=== PATIENT | male | born 1990 ===

== ENCOUNTER 2017-01-12 22:00 | Inpatient (IN) | payer OTHER ==
[~2017-01-12] VITALS: Ht 172.7 cm; Wt 137.1 kg
[2017-01-13] VITALS (12 sets, daily range): BP systolic 124–151; BP diastolic 61–95; PULSE 66–107; RESP 18–22; Ht 172.7 cm; Wt 137.1 kg
[2017-01-13] MEDS ORDERED: CEPH-443 PO (01:52)
[2017-01-13] MEDS ORDERED: TRAM50TA2 PO (01:52)
[2017-01-13] MEDS ORDERED: BACTDS PO (01:52)
[2017-01-13] MEDS ORDERED: VANCOMYCIN IV PER PHARMACY XX SCH (02:30)
[2017-01-13] MEDS ORDERED: ALBUTEROL 0.083% (NEB) 2.5 MG/3 ML AMP NEB PRN (02:30)
[2017-01-13] MEDS ORDERED: NITROGLYCERIN (SL) 0.4 MG TAB SL PRN (02:30)
[2017-01-13] MEDS ORDERED: NACL 0.9% 3 ML SYG IV SCH ×2 (02:30)
[2017-01-13] MEDS ORDERED: ONDANSETRON 4 MG TAB PO PRN (02:30)
[2017-01-13] MEDS ORDERED: CEFTRIAXONE 1 GM/50 ML (PMX) 50 ML IV SCH (02:30)
[2017-01-13] MEDS ORDERED: METOCLOPRAMIDE 10 MG INJ IV PRN (02:30)
--- NOTE | 2017-01-13 02:34 | HP ---
Date/Time of Note Date/Time of Note DATE: 01/13/17 TIME: 02:33 Assessment/Plan VTE Prophylaxis VTE Prophylaxis Intervention: ambulation Lines/Catheters IV Catheter Type (from [facility]): Saline Lock Assessment/Plan Assessment/Plan 1) Right LL Pneumonia - Admit to Med-Surg - IV Abx - Maintain O2 saturation above 90-92% - AM Labs: CBC, BMP - Incentive Spirometer - Activity as tolerated 2) Plonidal Cyst, S/P I&D healing well - Routine Care HPI/ROS Admit Date/Time Admit Date/Time Jan 13, 2017 at 01:09 Hx of Present Illness This is a 30-year-old male transferred to us from [facility] for insurance reasons. He presented there yesterday for follow-up on his wound status post IND of a pilonidal cyst 2 days prior. He also complained of a cough and difficulty breathing. Patient admits now that he had a temperature of 100 when they did the procedure, and he explained that he was just getting over the flu. After the incision and drainage she was discharged home on Keflex and Bactrim and he states he has been compliant with taking them. The previous pain in his lower back due to the pilonidal cyst has resolved. For the last couple of days he's had a cough productive of yellow sputum occasionally in the mornings. When he coughs really hard, the sputum is blood tinged. He took Robitussin for his symptoms. When he initially arrived to [facility] ER he was hypoxic saturating about 90% on room air, and that repair improved after he received 2 L of oxygen via nasal cannula. No nausea vomiting wheezing chest pain palpitations abdominal pains diarrhea or generalized body aches. While in the ER, he was his cardiac and oxygenation status were monitored. He was given oxygen supplementation the form of nasal cannula. 5 mL of normal saline were bolused via IV 2 and blood cultures were drawn and he was treated with IV ceftriaxone and azithromycin. Abdomen patient is here, he is feeling pretty good. He denies fevers chills nausea vomiting. There is still little bit of abdominal pain. Labs from [facility]: WBC 16.3 with a differential that shows neutrophils are elevated at 80.6%; H/H = 15.0/45.6; platelets =195 Sodium 138; potassium 4.5; chloride 100; CO2 23; B UN/creatinine 8/0.77; glucose 87 calcium 8.6 anion gap 15 estimated GFR 60. Lactate 1.13; pro calcitonin 0.19 Rads from [facility]: Per ER physician, chest x-ray demonstrates right lower lobe and right mid lung infiltrates. No cardiomegaly. No pneumothorax. ROS General: Admits: Fever, Chills, Denies: Chills, Appetite, Generalized Body Aches Eyes: Admits: Denies: Blurry Vision, Double Vision HENT: Admits: Denies: Ear Pain/Pressure, Runny/Stuffy Nose, Sore Throat Cardiovascular: Admits: Denies: Chest Pain, Palpitations, Leg Swelling Pulmonary: Admits: Cough, occasionally productive of yellow phlegm; do do do do due to due to Shortness of Breath Denies: Wheeze Gastrointestinal: Admits: Denies: Abdominal Pain, Nausea, Vomiting, Diarrhea, Blood in Stool, Black-Colored Stool Urogenital: Admits: Denies: Burning with Urination, Urinary Frequency, Blood in Urine Musculoskeletal: Admits: Denies: Joint Pain, Joint Swelling, Muscle Pain Neurological: Admits: Denies: Headache, Dizziness, Numbness, Tingling, Shooting Pains Integumentary: Admits: Wound from pilonidal cyst is not draining and it is no longer tender Denies: Rash, Itch PMH/Family/Social Past Medical History Medical History: no pertinent history Past Surgical History Past Surgical Hx: appendectomy Social History Alcohol Use: occasionally Smoking Status: Never smoker Drug Use: none Exam/Review of Systems Vital Signs Vitals Vital Signs Date Time Temp Pulse Resp B/P Pulse Ox O2 Delivery O2 Flow Rate FiO2 01/13/17 01:57 Nasal Cannula 2.0 01/13/17 01:15 98.6 112 18 124/72 94 Intake and Output 01/12/17 01/12/17 01/13/17 15:00 23:00 07:00 Intake Total 400 ml Balance 400 ml Exam Exam General: Morbidly obese male, alert and oriented, in no acute distress Eyes: Sclera White, EOMI HENT: Normocephalic/Atraumatic, External Ears/Nose Normal, Moist Mucus Membranes Neck: Supple, Trachea Midline Cardiovascular: Normal Rate, Regular Rhythm, Normal S1 and S2, No Murmur, No Extra Sounds. Radial disease +2/4. Trace pitting edema to lower one third of the legs bilaterally. Pulmonary: Clear to Auscultation Bilaterally, Normal Respiratory Effort, No Rales, Rhonchi or Wheezes Gastrointestinal: Normoactive Bowel Sounds, Soft, mild generalized tenderness. No guarding or rebound. Non-Distended, No Hepatosplenomegaly Appreciated, but exam difficult due to body habitus, No Pulsatile Masses Urogenital: Deferred Musculoskeletal: Normal Muscle Bulk and Tone Neurological: CN II - XII Grossly Intact, Non-Focal, Speech Normal Integumentary: Normal Moisture and Temperature, Good Turgor, No Jaundice, No Rash. Low back with healing incision site form I&D. No purulent drainage erythema, induration or fluctuance. Lymphatic: No Cervical Lymphadenopathy Psychiatric: Appropriate Mood and Affect, Good Eye Contact Medications Medications Current Medications Ondansetron HCl (Zofran Tab) 4 mg Q6H PRN PO NAUSEA AND/OR VOMITING; Start 01/13 at 02:30 Metoclopramide HCl (Reglan) 10 mg Q6H PRN IV NAUSEA AND/OR VOMITING; Start 01/13 at 02:30 Nitroglycerin (Nitroglycerin (Sl Tab) 0.4 Mg) 1 tab Q5M PRN SL CHEST PAIN; Start 01/13/17 at 02:30 Acetaminophen (Tylenol Tab) 650 mg Q6H PRN PO PAIN LEVEL 1-3 OR FEVER; Start at 02:30 Acetaminophen/ Hydrocodone Bitart ([place] (5/325)) 1 tab Q6H PRN PO PAIN LEVEL 4 -6; Start 01/13/17 at 02:30 Famotidine (Pepcid) 20 mg Q12 PO ; Start 01/13/17 at 09:00 Enoxaparin Sodium 40 mg 40 mg DAILY SC ; Start 01/13/17 at 09:00 Ceftriaxone Sodium 50 ml @ 100 mls/hr Q24H IV ; Start 01/13/17 at 02:30 Azithromycin (Zithromax 500mg/ NS (Pmx)) 250 ml @ 250 mls/hr Q24H IV ; Start at 03:30 Guaifenesin/ Dextromethorphan 10 ml 10 ml Q4H PRN PO COUGH; Start 01/13/17 at 02 :30 Vancomycin HCl/ Sodium Chloride (Vancocin/NS) 500 ml @ 125 mls/hr ONCE IVPB ; Start 01/13/17 at 04:30; Stop 01/13/17 at 08:29 LILLIE GOYAL DO Jan 13, 2017 02:34
[2017-01-13] MEDS: HYDROCODONE/APAP (5/325) TAB PO PRN ×3 (03:21→20:00)
[2017-01-13] MEDS: GUAIFENESIN/DM 5ML CUP PO PRN ×4 (03:22→19:59)
[2017-01-13] MEDS ORDERED: AZITHROMYCIN 500MG/NS (PMX) 250 ML IV SCH (03:30)
[2017-01-13] MEDS: ALBUTEROL/IPRATROPIUM (NEB) 3 ML AMP HHN SCH ×5 (04:03→21:07)
[2017-01-13] MEDS ORDERED: VANCOMYCIN 2 GM in SOD CHLORIDE 0.9% 500 ML IVPB SCH (04:30)
[2017-01-13] MEDS: FAMOTIDINE 20 MG TAB PO SCH ×2 (08:04→20:00)
[2017-01-13] MEDS: ENOXAPARIN 40 MG/0.4 ML SYG SC SCH (08:08)
[2017-01-13 08:28] LABS: ADD SCAN DIFF NO
[2017-01-13 08:38] LABS: BASOPHIL # 0.1 10^3/ul (0.0-0.1); BASOPHILS % 0.4 % (0.0-2.0); EOSINOPHILS # 0.1 10^3/ul (0.0-0.5); EOSINOPHILS % 1.2 % (0.0-7.0); HEMATOCRIT 42.1 % (42.0-52.0); HEMOGLOBIN 13.6 g/dl (14.0-18.0); LYMPHOCYTES # 1.8 10^3/ul (0.8-2.9); LYMPHOCYTES % 16.4 % (15.0-51.0); MEAN CORPUSCULAR HEMOGLOBIN 30.4 pg (29.0-33.0); MEAN CORPUSCULAR HGB CONC 32.3 g/dl (32.0-37.0); MEAN PLATELET VOLUME 11.7 fl (7.4-10.4); MONOCYTE # 0.8 10^3/ul (0.3-0.9); MONOCYTES % 7.4 % (0.0-11.0); NEUTROPHIL # 8.2 10^3/ul (1.6-7.5); PLATELET COUNT 212 10^3/UL (140-415); RED BLOOD COUNT 4.48 10^6/ul (4.70-6.10); RED CELL DISTRIBUTION WIDTH 12.9 % (11.5-14.5); WHITE BLOOD COUNT 11.2 10^3/ul (4.8-10.8)
[2017-01-13 08:47] LABS: ALBUMIN 3.5 g/dl (3.3-4.9)
[2017-01-13 08:48] LABS: POTASSIUM 4.1 mmol/L (3.5-5.1)
[2017-01-13 08:50] LABS: BILIRUBIN,INDIRECT 0.3 mg/dl (0-1.1); BILIRUBIN,TOTAL 0.3 mg/dl (0.2-1.3); CALCIUM 8.3 mg/dl (8.4-10.2); CREATININE 0.74 mg/dl (0.61-1.24)
[2017-01-13] MEDS: ACETAMINOPHEN 325 MG TAB PO PRN (10:01)
[2017-01-13] MEDS: VANCOMYCIN 1.75 GM in NS 500 ML IVPB SCH ×2 (13:56→23:12)
--- NOTE | 2017-01-13 15:02 | RADRPT ---
PROCEDURE: XR Chest AP portable CLINICAL INDICATION: Infiltrate TECHNIQUE: An AP portable radiograph of the chest was submitted. COMPARISON: None. FINDINGS: Support Hardware: None Cardiovascular: The cardiovascular silhouette appears unremarkable. Lung Mariee: And alveolar infiltrate is seen within the right middle lobe. Pleural Spaces: No pneumothorax or pleural effusion is identified. Osseous Structures: The osseous structures appear intact. Soft Tissues: The soft tissues appear generous. IMPRESSION: Alveolar infiltrate seen in right middle lobe. Physician Tony Date Time Electronically viewed and signed by Physician Tony on 01/13/2017 15:01 /
[2017-01-13] MEDS: CEFTRIAXONE 1 GM/50 ML (PMX) 50 ML IVPB SCH (20:52)
[2017-01-13] MEDS: AZITHROMYCIN 500MG/NS (PMX) 250 ML IV SCH (21:41)
--- NOTE | 2017-01-13 23:52 | CONS ---
Date/Time of Note Date/Time of Note DATE: 01/13/17 TIME: 23:51 Assessment/Plan Assessment/Plan Chief Complaint/Hosp Course 1. Pilonidal abscess insufficiently drained -abx -local care -warm compress -needs further I&D 2. BMI 46 -Diet optimization -Exercise optimization 3. Anemia without evidence of acute blood loss -Eventual workup 4. Right lower lobe pneumonia -Pulmonary toilet -Antibiotics Thank you very much for consulting me in this patient's care, Problems: Consultation Date/Type/Reason Admit Date/Time Jan 13, 2017 at 01:09 Date of Consultation: Jan 13, 2017 Type of Consultation: General surgical Reason for Consultation Pilonidal abscess BMI 46 Pneumonia Leukocytosis Anemia Referring Provider: STEPH MURO NP Hx of Present Illness Chandrakant Monson is a 30yo male with multiple comorbidities transferred to us from [facility] for insurance reasons. He presented there yesterday for follow-up on his wound status post I&D of a pilonidal cyst 2 days prior. He also complained of a cough and difficulty breathing. Patient admits now that he had a temperature of 100 when they did the procedure, and he explained that he was just getting over the flu. After the incision and drainage he was discharged home on Keflex and Bactrim and he states he has been compliant with taking them. The previous pain in his lower back due to the pilonidal cyst has resolved. In the ER he was found to have right lower lobe pneumonia and leukocytosis. He continues to have drainage from the pilonidal abscess. He is admitted with antibiotics and surgical consult is obtained for evaluation and treatment. Constitutional: chills, febrile Eyes: No discharge ENT: No bleeding, No discharge, No dysphagia Respiratory: cough, No shortness of breath Cardiovascular: No chest pain, No lightheadedness Gastrointestinal: flatus, pain, passing stool, No nausea Genitourinary: No bleeding, No dysuria Musculoskeletal: back pain, No neck pain Skin: skin lesions, No bruising Neurologic: No confusion, No dizziness Endocrine: No polyuria Lymphatic: No adenopathy Psychological: nl mood/affect, No anxiety Immunologic: No pruritis, No rhinitis Past Medical History BMI 46 Pilonidal cyst and abscess Right lower lobe pneumonia Leukocytosis Anemia Past Surgical History Appendectomy Family History Significant Family History: no pertinent family hx Social History Alcohol Use: occasionally Smoking Status: Never smoker Drug Use: none Exam/Review of Systems Vital Signs Vitals Vital Signs Date Time Temp Pulse Resp B/P Pulse Ox O2 Delivery O2 Flow Rate FiO2 01/13/17 21:18 Nasal Cannula 2.0 01/13/17 21:08 96 22 98 01/13/17 19:45 97.3 132/74 Intake and Output 01/12/17 01/12/17 01/13/17 15:00 23:00 07:00 Intake Total 765 ml Output Total 400 ml Balance 365 ml Exam Constitutional: alert, obese, oriented, No distress Psych: No anxiety, No confusion Head: atraumatic, normocephalic Eyes: EOMI, PERRL, nl conjunctiva, No icteric ENMT: mucosa pink and moist, nl external ears & nose, nl lips & teeth Neck: non-tender, No jvd Respiratory: normal air movement, No congested cough, No labored breathing Cardiovascular: regular rate and rhythm, No edema Gastrointestinal: non-tender, other (Gluteal cleft with induration and fluctuance blanching erythema and purulent drainage), soft, No distended, No rebound or guarding Genitourinary - Male: nl penis, nl scrotum Musculoskeletal: nl extremities to inspection, nl gait and stance, No joint tenderness Extremities: normal pulses, No calf tenderness, No cyanosis Neurological: nl mental status, nl speech, nl strength Skin: nl turgor, rash or lesions (Gluteal cleft), No diaphoresis Lymph: nl lymph nodes Results Result Diagram: 01/13/17 0730 01/13/17 0730 Results 24 hrs Laboratory Tests Test 01/13/17 07:30 White Blood Count 11.2 H Red Blood Count 4.48 L Hemoglobin 13.6 L Hematocrit 42.1 Mean Corpuscular Volume 94.0 Mean Corpuscular Hemoglobin 30.4 Mean Corpuscular Hemoglobin Concent 32.3 Red Cell Distribution Width 12.9 Platelet Count 212 Mean Platelet Volume 11.7 H Neutrophils % 74.0 Lymphocytes % 16.4 Monocytes % 7.4 Eosinophils % 1.2 Basophils % 0.4 Nucleated Red Blood Cells % 0.0 Neutrophils # 8.2 H Lymphocytes # 1.8 Monocytes # 0.8 Eosinophils # 0.1 Basophils # 0.1 Nucleated Red Blood Cells # 0.0 Sodium Level 139 Potassium Level 4.1 Chloride Level 101 Carbon Dioxide Level 27 Anion Gap 15 Blood Urea Nitrogen 8 Creatinine 0.74 Glucose Level 100 Calcium Level 8.3 L Total Bilirubin 0.3 Direct Bilirubin 0.00 Indirect Bilirubin 0.3 Aspartate Amino Transf (AST/SGOT) 29 Alanine Aminotransferase (ALT/SGPT) 52 Alkaline Phosphatase 68 Total Protein 7.0 Albumin 3.5 Globulin 3.50 H Albumin/Globulin Ratio 1.00 Medications Medications Current Medications Ondansetron HCl (Zofran Tab) 4 mg Q6H PRN PO NAUSEA AND/OR VOMITING; Start 01/13 at 02:30 Metoclopramide HCl (Reglan) 10 mg Q6H PRN IV NAUSEA AND/OR VOMITING; Start 01/13 at 02:30 Nitroglycerin (Nitroglycerin (Sl Tab) 0.4 Mg) 1 tab Q5M PRN SL CHEST PAIN; Start 01/13/17 at 02:30 Acetaminophen (Tylenol Tab) 650 mg Q6H PRN PO PAIN LEVEL 1-3 OR FEVER Last administered on 01/13/17 10:01; Admin Dose 650 MG; Start 01/13/17 at 02:30 Acetaminophen/ Hydrocodone Bitart ([place] (5/325)) 1 tab Q6H PRN PO PAIN LEVEL 4 -6 Last administered on 01/13/17 20:00; Admin Dose 1 TAB; Start 01/13/17 at 02:30 Famotidine (Pepcid) 20 mg Q12 PO Last administered on 01/13/17 20:00; Admin Dose 20 MG; Start 01/13/17 at 09:00 Enoxaparin Sodium (Lovenox) 40 mg DAILY SC Last administered on 01/13/17 08:08 ; Admin Dose 40 MG; Start 01/13/17 at 09:00 Guaifenesin/ Dextromethorphan 10 ml 10 ml Q4H PRN PO COUGH Last administered on 01/13/17 19:59; Admin Dose 10 ML; Start 01/13/17 at 02:30 Ceftriaxone Sodium 50 ml @ 100 mls/hr Q24H IVPB Last administered on 01/13/17 20:52; Admin Dose 100 MLS/HR; Start 01/13/17 at 19:30 Azithromycin (Zithromax 500mg/ NS (Pmx)) 250 ml @ 250 mls/hr Q24H IV Last administered on 01/13/17 21:41; Admin Dose 250 MLS/HR; Start 01/13/17 at 20:00 Miscellaneous Information VANCO TR LEVEL PRIOR... ONCE ONCE XX ; Start 01/14/17 at 04:00; Stop 01/14/17 at 04:01 Vancomycin HCl/ Sodium Chloride (Vancocin/NS) 500 ml @ 125 mls/hr Q8H IVPB Last administered on 01/13/17 23:12; Admin Dose 125 MLS/HR; Start 01/13/17 at 13: 00 YOU MAURER MD Jan 13, 2017 23:52
[2017-01-14] VITALS (11 sets, daily range): BP systolic 118–157; BP diastolic 60–83; PULSE 79–106; RESP 19–20
[2017-01-14] MEDS: GUAIFENESIN/DM 5ML CUP PO PRN ×4 (02:17→21:12)
[2017-01-14] MEDS: HYDROCODONE/APAP (5/325) TAB PO PRN ×2 (02:17→08:13)
[2017-01-14] MEDS: ALBUTEROL/IPRATROPIUM (NEB) 3 ML AMP HHN SCH ×6 (02:29→22:00)
[2017-01-14 04:20] LABS: ADD SCAN DIFF NO
[2017-01-14 04:22] LABS: BASOPHILS % 0.4 % (0.0-2.0); EOSINOPHILS # 0.2 10^3/ul (0.0-0.5); HEMATOCRIT 40.2 % (42.0-52.0); HEMOGLOBIN 13.1 g/dl (14.0-18.0); LYMPHOCYTES # 1.9 10^3/ul (0.8-2.9); LYMPHOCYTES % 20.9 % (15.0-51.0); MEAN CORPUSCULAR HEMOGLOBIN 30.6 pg (29.0-33.0); MEAN CORPUSCULAR HGB CONC 32.6 g/dl (32.0-37.0); MEAN CORPUSCULAR VOLUME 93.9 fl (82.0-101.0); MEAN PLATELET VOLUME 11.1 fl (7.4-10.4); MONOCYTE # 0.9 10^3/ul (0.3-0.9); MONOCYTES % 9.6 % (0.0-11.0); NEUTROPHIL # 6.1 10^3/ul (1.6-7.5); NEUTROPHILS % 66.6 % (39.0-77.0); PLATELET COUNT 196 10^3/UL (140-415); RED BLOOD COUNT 4.28 10^6/ul (4.70-6.10); RED CELL DISTRIBUTION WIDTH 13.2 % (11.5-14.5); WHITE BLOOD COUNT 9.1 10^3/ul (4.8-10.8)
[2017-01-14 04:49] LABS: POTASSIUM 4.1 mmol/L (3.5-5.1)
[2017-01-14 04:51] LABS: CREATININE 0.63 mg/dl (0.61-1.24)
[2017-01-14 04:52] LABS: CALCIUM 8.5 mg/dl (8.4-10.2)
[2017-01-14 05:08] LABS: CHOL/HDL RATIO 4.1 RATIO; MAGNESIUM 1.8 mg/dl (1.7-2.5); PHOSPHORUS 4.5 mg/dl (2.5-4.9)
[2017-01-14 07:26] LABS: THYROID STIMULATING HORMONE 2.32 MIU/L (0.465-4.680)
[2017-01-14] MEDS: VANCOMYCIN 1.75 GM in NS 500 ML IVPB SCH (08:08)
[2017-01-14] MEDS: FAMOTIDINE 20 MG TAB PO SCH ×2 (08:10→21:12)
[2017-01-14] MEDS: ENOXAPARIN 40 MG/0.4 ML SYG SC SCH (08:11)
--- NOTE | 2017-01-14 15:07 | PN ---
DATE: 01/14/2017 SUBJECTIVE DATA: Dyspnea improved. The patient still complains of leaking from the cyst drain site. OBJECTIVE DATA: VITAL SIGNS: Temperature 98.0, pulse rate 79, respiratory rate 18, blood pressure 130/60, oxygen saturation 98% on 2 liters of oxygen via nasal cannula. GENERAL: This is a morbidly obese male sitting in a chair, in no apparent distress. HEENT: Head normocephalic and atraumatic. Eyes: Anicteric sclerae. Conjunctivae clear. ENT: Nasal septum is midline. Oral mucosa is moist. NECK: Short and obese. CARDIAC: Regular rate and rhythm. No murmurs heard. RESPIRATORY: Bilaterally diminished breath sounds. No use of accessory muscles of respiration. ABDOMEN: Soft, nontender and nondistended. Bowel sounds positive in all 4 quadrants. GENITOURINARY: Deferred. EXTREMITIES: No cyanosis, no clubbing, no edema. Peripheral pulses palpable. NEUROLOGIC: The patient is awake, alert and oriented x3. No focal neurologic deficits. LABORATORY AND DIAGNOSTIC DATA: WBC 9.1, hemoglobin 13.1, hematocrit 40.2, platelet count 196. Sodium 138, potassium 4.1, chloride 102, carbon dioxide 27 , anion gap 13, BUN 8, creatinine 0.62, glucose 115, calcium 8.7. Phosphorus 4.5, magnesium 1.8. ASSESSMENT AND PLAN: 1. Community-acquired pneumonia. Chest x-ray showing right middle lobe infiltrate. Continue antibiotics. 2. Pilonidal abscess insufficiently drained. Being followed by general surgery. Continue antibiotics. Continue warm compresses. General surgery is planning on further I and D. 3. Prediabetes. Hemoglobin A1c 6.0. Weight reduction advised. Dietary consult ordered. 4. Vitamin D deficiency. We will start the patient on vitamin D supplements. 5. Obesity. BMI of 46.0 kg/meter squared. Weight reduction advised. 6. Fluid, electrolytes and nutrition. Low cholesterol diet. 7. Deep venous thrombosis prophylaxis. Subcutaneous Lovenox. 8. Gastrointestinal prophylaxis. Histamine 2 receptor blockers. PLAN: Continue antibiotic therapy. Continue inhaled bronchodilators and supplemental oxygen. Case discussed with Dr. Casey. STEPH CASEY MD, AM/JOLANTA Conf#: [id number] DID#: [id number] [facility]
[2017-01-14] MEDS: VANCOMYCIN 2 GM in SOD CHLORIDE 0.9% 500 ML IVPB SCH (16:08)
[2017-01-14] MEDS: CHOLECALCIFEROL 1,000 UNIT TAB PO SCH (16:08)
[2017-01-14] MEDS: CEFTRIAXONE 1 GM/50 ML (PMX) 50 ML IVPB SCH (20:38)
[2017-01-14] MEDS: AZITHROMYCIN 500MG/NS (PMX) 250 ML IV SCH (21:15)
[2017-01-15] MEDS: VANCOMYCIN 2 GM in SOD CHLORIDE 0.9% 500 ML IVPB SCH ×3 (00:20→16:06)
[2017-01-15] MEDS: ALBUTEROL/IPRATROPIUM (NEB) 3 ML AMP HHN SCH ×6 (00:32→20:54)
[2017-01-15] MEDS: GUAIFENESIN/DM 5ML CUP PO PRN ×3 (05:09→20:24)
[2017-01-15 05:33] LABS: ADD SCAN DIFF NO
[2017-01-15 05:43] LABS: BASOPHILS % 0.4 % (0.0-2.0); EOSINOPHILS # 0.2 10^3/ul (0.0-0.5); EOSINOPHILS % 2.1 % (0.0-7.0); HEMATOCRIT 39.8 % (42.0-52.0); HEMOGLOBIN 13.1 g/dl (14.0-18.0); LYMPHOCYTES # 2.3 10^3/ul (0.8-2.9); LYMPHOCYTES % 22.3 % (15.0-51.0); MEAN CORPUSCULAR HEMOGLOBIN 30.7 pg (29.0-33.0); MEAN CORPUSCULAR HGB CONC 32.9 g/dl (32.0-37.0); MEAN CORPUSCULAR VOLUME 93.2 fl (82.0-101.0); MEAN PLATELET VOLUME 11.1 fl (7.4-10.4); MONOCYTES % 10.1 % (0.0-11.0); NEUTROPHIL # 6.6 10^3/ul (1.6-7.5); NEUTROPHILS % 64.4 % (39.0-77.0); PLATELET COUNT 216 10^3/UL (140-415); RED BLOOD COUNT 4.27 10^6/ul (4.70-6.10); WHITE BLOOD COUNT 10.3 10^3/ul (4.8-10.8)
[2017-01-15 05:57] LABS: CALCIUM 8.6 mg/dl (8.4-10.2); CREATININE 0.61 mg/dl (0.61-1.24); POTASSIUM 4.1 mmol/L (3.5-5.1)
[2017-01-15 05:58] LABS: MAGNESIUM 1.8 mg/dl (1.7-2.5); PHOSPHORUS 4.7 mg/dl (2.5-4.9)
[2017-01-15 07:59] VITALS: BP 119/58; RESP 22
[2017-01-15] MEDS: FAMOTIDINE 20 MG TAB PO SCH ×2 (09:13→20:24)
[2017-01-15] MEDS: CHOLECALCIFEROL 1,000 UNIT TAB PO SCH (09:13)
[2017-01-15] MEDS: ENOXAPARIN 40 MG/0.4 ML SYG SC SCH (09:16)
--- NOTE | 2017-01-15 09:34 | RADRPT ---
PROCEDURE: XR Chest. CLINICAL INDICATION: Shortness of breath. TECHNIQUE: Single frontal view. COMPARISON: 01/13/2017. FINDINGS: There is air space disease in the right middle lobe, improved. The lungs are otherwise clear. The heart size is normal. There is no pleural effusion. There is no pneumothorax. IMPRESSION: 1. Improved right middle lobe pneumonia. 2. No other change from 01/13/2017. RPTAT: QQ .Rigoberto Ellis MD, MD Date Time Electronically viewed and signed by .Rigoberto Ellis MD, MD on 01/15/2017 09:33 .R/
[2017-01-15] MEDS: ACETAMINOPHEN 325 MG TAB PO PRN (11:19)
--- NOTE | 2017-01-15 11:26 | PN ---
Date/Time of Note Date/Time of Note DATE: 01/15/17 TIME: 11:23 Assessment/Plan VTE Prophylaxis VTE Prophylaxis Intervention: LMWH Lines/Catheters IV Catheter Type (from [facility]): Saline Lock Assessment/Plan Chief Complaint/Hosp Course 1. Community-acquired pneumonia. Chest x-ray showing right middle lobe infiltrate. Continue antibiotics. Repeat chest x-ray showing improvement. 2. Pilonidal abscess insufficiently drained. Being followed by general surgery. Continue antibiotics. Continue warm compresses. General surgery is planning on further I and D. 3. Prediabetes. Hemoglobin A1c 6.0. Weight reduction advised. Dietary consult appreciated. 4. Vitamin D deficiency. Continue vitamin D supplements. 5. Obesity. BMI of 46.0 kg/meter squared. Weight reduction advised. 6. Fluid, electrolytes and nutrition. Regular, low cholesterol diet. 7. Deep venous thrombosis prophylaxis. Subcutaneous Lovenox. 8. Gastrointestinal prophylaxis. Histamine 2 receptor blockers. PLAN: Continue antibiotic therapy. Continue inhaled bronchodilators and supplemental oxygen. Await recommendations from general surgery. Case discussed with Dr. Kessler. Problems: Subjective 24 Hr Interval Summary Free Text/Dictation Denies any dyspnea. Complains of headache. Exam/Review of Systems Vital Signs Vitals Vital Signs Date Time Temp Pulse Resp B/P Pulse Ox O2 Delivery O2 Flow Rate FiO2 01/15/17 10:09 91 20 91 Nasal Cannula 2.0 01/15/17 07:59 98.4 119/58 Intake and Output 01/14/17 01/14/17 01/15/17 15:00 23:00 07:00 Intake Total 500 ml 1800 ml 1140 ml Output Total 800 ml 400 ml Balance 500 ml 1000 ml 740 ml Exam GENERAL: This is a morbidly obese male sitting in a chair, in no apparent distress. HEENT: Head normocephalic and atraumatic. Eyes: Anicteric sclerae. Conjunctivae clear. ENT: Nasal septum is midline. Oral mucosa is moist. NECK: Short and obese. CARDIAC: Regular rate and rhythm. No murmurs heard. RESPIRATORY: Bilaterally diminished breath sounds. No use of accessory muscles of respiration. ABDOMEN: Soft, nontender and nondistended. Bowel sounds positive in all 4 quadrants. GENITOURINARY: Deferred. EXTREMITIES: No cyanosis, no clubbing, no edema. Peripheral pulses palpable. NEUROLOGIC: The patient is awake, alert and oriented x3. No focal neurologic deficits. Results Result Diagram: 01/15/17 0450 01/15/17 0450 Results 24 hrs Laboratory Tests Test 01/15/17 04:50 White Blood Count 10.3 Red Blood Count 4.27 L Hemoglobin 13.1 L Hematocrit 39.8 L Mean Corpuscular Volume 93.2 Mean Corpuscular Hemoglobin 30.7 Mean Corpuscular Hemoglobin Concent 32.9 Red Cell Distribution Width 13.0 Platelet Count 216 Mean Platelet Volume 11.1 H Neutrophils % 64.4 Lymphocytes % 22.3 Monocytes % 10.1 Eosinophils % 2.1 Basophils % 0.4 Nucleated Red Blood Cells % 0.0 Neutrophils # 6.6 Lymphocytes # 2.3 Monocytes # 1.0 H Eosinophils # 0.2 Basophils # 0.0 Nucleated Red Blood Cells # 0.0 Sodium Level 139 Potassium Level 4.1 Chloride Level 103 Carbon Dioxide Level 28 Anion Gap 12 Blood Urea Nitrogen 6 L Creatinine 0.61 Glucose Level 116 Calcium Level 8.6 Phosphorus Level 4.7 Magnesium Level 1.8 Medications Medications Current Medications Ondansetron HCl (Zofran Tab) 4 mg Q6H PRN PO NAUSEA AND/OR VOMITING; Start 01/13 at 02:30 Metoclopramide HCl (Reglan) 10 mg Q6H PRN IV NAUSEA AND/OR VOMITING; Start 01/13 at 02:30 Nitroglycerin (Nitroglycerin (Sl Tab) 0.4 Mg) 1 tab Q5M PRN SL CHEST PAIN; Start 01/13/17 at 02:30 Acetaminophen (Tylenol Tab) 650 mg Q6H PRN PO PAIN LEVEL 1-3 OR FEVER Last administered on 01/15/17 11:19; Admin Dose 650 MG; Start 01/13/17 at 02:30 Acetaminophen/ Hydrocodone Bitart ([place] (5/325)) 1 tab Q6H PRN PO PAIN LEVEL 4 -6 Last administered on 01/14/17 08:13; Admin Dose 1 TAB; Start 01/13/17 at 02:30 Famotidine (Pepcid) 20 mg Q12 PO Last administered on 01/15/17 09:13; Admin Dose 20 MG; Start 01/13/17 at 09:00 Enoxaparin Sodium (Lovenox) 40 mg DAILY SC Last administered on 01/15/17 09:16 ; Admin Dose 40 MG; Start 01/13/17 at 09:00 Guaifenesin/ Dextromethorphan 10 ml 10 ml Q4H PRN PO COUGH Last administered on 01/15/17 09:31; Admin Dose 10 ML; Start 01/13/17 at 02:30 Ceftriaxone Sodium 50 ml @ 100 mls/hr Q24H IVPB Last administered on 01/14/17 20:38; Admin Dose 100 MLS/HR; Start 01/13/17 at 19:30 Azithromycin 250 ml @ 250 mls/hr Q24H IV Last administered on 01/14/17 21:15; Admin Dose 250 MLS/HR; Start 01/13/17 at 20:00 Vancomycin HCl/ Sodium Chloride (Vancocin/NS) 500 ml @ 125 mls/hr Q8H IVPB Last administered on 01/15/17 09:25; Admin Dose 125 MLS/HR; Start 01/14/17 at 16: 00 Miscellaneous Information (*Rx Drug Level Order Reminder*) VANCO TROUGH @ 1, 500 ON... ONCE ONCE XX ; Start 01/15/17 at 15:00; Stop 01/15/17 at 15:01 Cholecalciferol (Vitamin D) 1,000 unit DAILY PO Last administered on 01/15/17 09:13; Admin Dose 1,000 UNIT; Start 01/14/17 at 16:00 Procedures Procedures CXR IMPRESSION: 1. Improved right middle lobe pneumonia. 2. No other change from 01/13/2017. STEPH MURO NP Jan 15, 2017 11:26
--- NOTE | 2017-01-15 14:04 | PN ---
Date/Time of Note Date/Time of Note DATE: 01/14/17 TIME: 23:02 Assessment/Plan Lines/Catheters IV C[facility]ter Type (from [facility] Saline Lock Assessment/Plan Chief Complaint/Hosp Course 1. Pilonidal abscess insufficiently drained -abx -local care -warm compress -needs further I&D 2. BMI 46 -Diet optimization -Exercise optimization 3. Anemia without evidence of acute blood loss -Eventual workup 4. Right lower lobe pneumonia -Pulmonary toilet -Antibiotics Thank you, Late entry 01/14 Problems: Subjective 24 Hr Interval Summary Minimal pain in the back. No fevers or chills. No nausea vomiting. No chest pain or shortness of breath. No visual neurologic changes. No dysuria. No cough. No seizure. No rashes. Drainage from the gluteal cleft. Bowel function. Exam/Review of Systems Vital Signs Vitals Vital Signs Date Time Temp Pulse Resp B/P Pulse Ox O2 Delivery O2 Flow Rate FiO2 01/15/17 13:20 92 20 96 Nasal Cannula 2.0 01/15/17 07:59 98.4 119/58 Intake and Output 01/14/17 01/14/17 01/15/17 15:00 23:00 07:00 Intake Total 500 ml 1800 ml 1140 ml Output Total 800 ml 400 ml Balance 500 ml 1000 ml 740 ml Exam Free Text/Dictation Constitutional: alert, obese, oriented, No distress Psych: No anxiety, No confusion Head: atraumatic, normocephalic Eyes: EOMI, PERRL, nl conjunctiva, No icteric ENMT: mucosa pink and moist, nl external ears & nose, nl lips & teeth Neck: non-tender, No jvd Respiratory: normal air movement, No congested cough, No labored breathing Cardiovascular: regular rate and rhythm, No edema Gastrointestinal: non-tender, other (Gluteal cleft with induration and fluctuance blanching erythema and purulent drainage), soft, No distended, No rebound or guarding Genitourinary - Male: nl penis, nl scrotum Musculoskeletal: nl extremities to inspection, nl gait and stance, No joint tenderness Extremities: normal pulses, No calf tenderness, No cyanosis Neurological: nl mental status, nl speech, nl strength Skin: nl turgor, rash or lesions (Gluteal cleft), No diaphoresis Lymph: nl lymph nodes Results Result Diagram: 01/15/17 0450 01/15/17 0450 YOU MAURER MD Jan 15, 2017 14:04
--- NOTE | 2017-01-15 14:04 | PN ---
Date/Time of Note Date/Time of Note DATE: 01/15/17 TIME: 14:04 Assessment/Plan Lines/Catheters IV Catheter Type (from [facility]): Saline Lock Assessment/Plan Chief Complaint/Hosp Course 1. Pilonidal abscess insufficiently drained -abx -local care -warm compress -needs further I&D 2. BMI 46 -Diet optimization -Exercise optimization 3. Anemia without evidence of acute blood loss -Eventual workup 4. Right lower lobe pneumonia -Pulmonary toilet -Antibiotics Thank you, Problems: Subjective 24 Hr Interval Summary Minimal pain in the back. No fevers or chills. No nausea vomiting. No chest pain or shortness of breath. No visual neurologic changes. No dysuria. No cough. No seizure. No rashes. Drainage from the gluteal cleft. Bowel function. Exam/Review of Systems Vital Signs Vitals Vital Signs Date Time Temp Pulse Resp B/P Pulse Ox O2 Delivery O2 Flow Rate FiO2 01/15/17 13:20 92 20 96 Nasal Cannula 2.0 01/15/17 07:59 98.4 119/58 Intake and Output 01/14/17 01/14/17 01/15/17 15:00 23:00 07:00 Intake Total 500 ml 1800 ml 1140 ml Output Total 800 ml 400 ml Balance 500 ml 1000 ml 740 ml Exam Free Text/Dictation Constitutional: alert, obese, oriented, No distress Psych: No anxiety, No confusion Head: atraumatic, normocephalic Eyes: EOMI, PERRL, nl conjunctiva, No icteric ENMT: mucosa pink and moist, nl external ears & nose, nl lips & teeth Neck: non-tender, No jvd Respiratory: normal air movement, No congested cough, No labored breathing Cardiovascular: regular rate and rhythm, No edema Gastrointestinal: non-tender, other (Gluteal cleft with induration and fluctuance blanching erythema and purulent drainage), soft, No distended, No rebound or guarding Genitourinary - Male: nl penis, nl scrotum Musculoskeletal: nl extremities to inspection, nl gait and stance, No joint tenderness Extremities: normal pulses, No calf tenderness, No cyanosis Neurological: nl mental status, nl speech, nl strength Skin: nl turgor, rash or lesions (Gluteal cleft), No diaphoresis Lymph: nl lymph nodes Results Result Diagram: 01/15/17 0450 01/15/17 0450 YOU MAURER MD Jan 15, 2017 14:04
[2017-01-15] MEDS ORDERED: LIDOCAINE 1%/EPI 30 ML INJ INJ SCH (15:34)
[2017-01-15] MEDS ORDERED: SILVER NITRATE SWAB TOP SCH (16:00)
[2017-01-15] MEDS: HYDROCODONE/APAP (5/325) TAB PO PRN (18:02)
--- NOTE | 2017-01-15 18:09 | OPR ---
Date/Time of Note Date/Time of Note DATE: 01/15/17 TIME: 18:01 Operative Report Procedure Date: Jan 15, 2017 Preoperative Diagnosis Pilonidal abscess BMI 46 Postoperative Diagnosis Pilonidal abscess BMI 46 Operation Performed 1. Excisional debridement of sacrococcygeal skin, subcutaneous, & fascia. 3x2 cm 2. Incision and drainage of pilonidal abscess 3. Local anesthetic injection Surgeon: YOU MAURER MD Anesthesia: other (Local) Estimated Blood Loss: 0 - 10 ml's Specimens Culture Tubes/Drains Gauze packing with Betadine Complications: None Pt Condition Post Procedure: stable Disposition: other (Own room) Indications Per consult. R/B/A fully reviewed with patient as per usual and customary Procedure Description Patient placed in prone position in his own bed. Time out performed. Area prepped and draped sterilly. Local anesthetic injected at the surgical site. Using 11 blade scalpel, abscess was entered and drained. Devitalized tissue of skin, subq, and facia was debrided to healthier edges using curette. Wound was irrigated and packed tight with betadine soaked kerlix. Dry dressing applied. Patient tolerated procedure well. YOU MAURER MD Jan 15, 2017 18:09
[2017-01-15 20:00] VITALS: BP 130/70; PULSE 98; RESP 20
[2017-01-15] MEDS: CEFTRIAXONE 1 GM/50 ML (PMX) 50 ML IVPB SCH (20:02)
[2017-01-15] MEDS: AZITHROMYCIN 500MG/NS (PMX) 250 ML IV SCH (20:45)
[2017-01-16] MEDS: ALBUTEROL/IPRATROPIUM (NEB) 3 ML AMP HHN SCH ×4 (01:13→13:00)
[2017-01-16] MEDS: VANCOMYCIN 2 GM in SOD CHLORIDE 0.9% 500 ML IVPB SCH ×2 (01:15→09:31)
[2017-01-16] MEDS: GUAIFENESIN/DM 5ML CUP PO PRN (01:45)
[2017-01-16] MEDS: HYDROCODONE/APAP (5/325) TAB PO PRN (04:56)
[2017-01-16 06:24] LABS: ADD SCAN DIFF NO
[2017-01-16 06:37] LABS: POTASSIUM 4.1 mmol/L (3.5-5.1)
[2017-01-16 06:39] LABS: CREATININE 0.72 mg/dl (0.61-1.24)
[2017-01-16 06:40] LABS: CALCIUM 9.1 mg/dl (8.4-10.2)
[2017-01-16 07:21] LABS: BASOPHILS % 0.4 % (0.0-2.0); EOSINOPHILS # 0.4 10^3/ul (0.0-0.5); EOSINOPHILS % 4.7 % (0.0-7.0); HEMATOCRIT 41.2 % (42.0-52.0); LYMPHOCYTES # 2.4 10^3/ul (0.8-2.9); LYMPHOCYTES % 31.7 % (15.0-51.0); MEAN CORPUSCULAR HEMOGLOBIN 29.7 pg (29.0-33.0); MEAN CORPUSCULAR HGB CONC 31.6 g/dl (32.0-37.0); MEAN CORPUSCULAR VOLUME 94.3 fl (82.0-101.0); MEAN PLATELET VOLUME 10.9 fl (7.4-10.4); MONOCYTE # 0.6 10^3/ul (0.3-0.9); NEUTROPHIL # 4.2 10^3/ul (1.6-7.5); NEUTROPHILS % 54.4 % (39.0-77.0); PLATELET COUNT 216 10^3/UL (140-415); RED BLOOD COUNT 4.37 10^6/ul (4.70-6.10); RED CELL DISTRIBUTION WIDTH 12.8 % (11.5-14.5); WHITE BLOOD COUNT 7.6 10^3/ul (4.8-10.8)
[2017-01-16 07:25] VITALS: BP 151/67; RESP 22
[2017-01-16] MEDS: ENOXAPARIN 40 MG/0.4 ML SYG SC SCH (09:00)
[2017-01-16] MEDS: FAMOTIDINE 20 MG TAB PO SCH (09:32)
[2017-01-16] MEDS: CHOLECALCIFEROL 1,000 UNIT TAB PO SCH (09:32)
--- NOTE | 2017-01-16 10:11 | PDOCDIS ---
Discharge Instructions DIAGNOSIS Discharge Diagnosis: Community-acquired pneumonia. Pilonidal cyst. CONDITION Patient Condition: Stable HOME CARE INSTRUCTIONS: Diet Instructions: Low Fat /Cholesterol OTHER ORDERS: Other Orders: 1. Take medications as per prescription. 2. Low-cholesterol diet. 3. Follow-up with your primary care physician in 1 week for a repeat chest x- ray. If you do not have a primary care physician, please call Dr. Filipe Mata' s office. 4. Resume activities as tolerated. 5. Go to the nearest emergency room if you have persistent fevers, worsening shortness of breath, chest pain, or any other unusual signs/symptoms. STEPH MURO NP Jan 16, 2017 10:11
[2017-01-16] MEDS ORDERED: CEPH-443 PO (10:13)
[2017-01-16] MEDS ORDERED: LEVO750T25 PO (10:13)
[2017-01-16] MEDS ORDERED: HYDR-906 PO (10:14)
--- NOTE | 2017-01-17 10:17 | DS ---
DATE OF ADMISSION: 01/13/2017 DATE OF DISCHARGE: 01/16/2017 FINAL DIAGNOSES: 1. Community-acquired pneumonia. 2. Pilonidal abscess, status post drainage. 3. Prediabetes. 4. Vitamin D deficiency. 5. Obesity. CONSULTATIONS: Dr. Hao Murcia, general surgery. HOSPITAL COURSE: This is a 26-year-old male transferred from [facility] for insurance reasons. He presented to [facility] for a wound status followup. The patient apparently had a pilonidal cyst removed at this hospital 2 days prior to the day of admission. However, at [facility], the patient was noticed to have a cough with difficulty in breathing. The patient also verbalized subjective fevers. At the [facility] ER he was noticed to be hypoxic, saturating about 90% on room air. The patient was noticed to have leukocytosis. The patient was transferred to [facility] for further evaluation because of insurance reasons. The patient was admitted to the inpatient medical/surgical floor. The patient was started on empiric antibiotics. The patient's chest x-ray revealed a right middle lobe pneumonia. The patient was maintained on inhaled bronchodilators and supplemental oxygen for his underlying hypoxia. The patient's hypoxia was concluded to be secondary to his underlying community acquired pneumonia. The patient is a nonsmoker. The patient denied any history of asthma. Meanwhile the patient was noticed to have his pilonidal cyst still draining. Hence, a general surgery consult was called. After evaluation, general surgery verbalized that the patient's cyst has been insufficiently drained at the other hospital. Hence, the patient underwent an incision and drainage of the pilonidal abscess at the bedside on 01/15/2017 by general surgery. The patient was maintained on antibiotics for community-acquired pneumonia as well as the pilonidal cyst. The patient is morbidly obese, with a BMI of 46.0 kilograms per meter squared. The patient's hemoglobin A1c was found to be 6.0, indicating prediabetes. The patient's fasting lipid panel was suboptimal, with a low HDL. The patient was then seen by a registered dietitian and was advised on a low cholesterol and low carbohydrate diet. The patient had a stable hospital course. The patient was cleared by consultants to be discharged home. The patient denied any complaints at the time of discharge. DISCHARGE DISPOSITION AND PLAN: The patient will be discharged home today. The patient was instructed to take medications as per prescription. He was instructed to follow a low cholesterol, carbohydrate controlled diet. He was instructed to follow up with his primary care physician in 1 week for a repeat chest x-ray and if he does not have a primary care physician to please call Dr. Filipe Mata's office. The patient was instructed to resume activities as tolerated. He was instructed to go to the nearest emergency room if he has persistent fevers, worsening shortness of breath, chest pain or any other unusual signs or symptoms. He was instructed to follow-up with Dr. Murcia in 2 weeks. The patient verbalized understanding of his discharge instructions. CONDITION AT DISCHARGE: Stable. DISCHARGE MEDICATIONS: 1. Keflex 500 mg p.o. q.8h. x10 days. 2. Levaquin 750 mg p.o. daily x10 days. 3. Epworth 5/325, one tablet p.o. q.6h. p.r.n. pain (#10 tablets). PERTINENT LABORATORY DIAGNOSTIC DATA AND PROCEDURES: 1. 01/15/2017 Debridement of the skin, subcutaneous tissue and fascia, 3 x 2 cm , with incision and drainage of pilonidal abscess under local anesthetic injection. 2. Latest CBC: WBC 7.6, hemoglobin 13.0, hematocrit 41.2, platelet count 216. 3. Latest BMP: Sodium 142, potassium 4.1, chloride 101, carbon dioxide 28, anion gap 17, BUN 10, creatinine 0.72, glucose 99, calcium 9.1, magnesium 1.8. 4. Vitamin D level 21.5. 5. Fasting lipid panel: Triglycerides 88, total cholesterol 111, LDL 66, HDL 27. 6. Hemoglobin A1c 6.0. 7. Latest chest x-ray. Improving right middle lobe pneumonia. At this time I would like to thank Dr. Murcia for seeing the patient, doing the necessary procedures, and providing clinical recommendations. The case and management of this patient was fully discussed with Dr. Casey. Approximately 35 minutes was spent on coordinating the discharge on this patient. STEPH CASEY MD, AM/JOLANTA Conf#: [id number] DID#: [id number] [facility]
--- NOTE | 2017-01-17 20:48 | PN ---
Date/Time of Note Date/Time of Note DATE: 01/16/17 TIME: 8:46 Assessment/Plan Lines/Catheters IV Catheter Type (from [facility]): Saline Lock Assessment/Plan Chief Complaint/Hosp Course 1. Pilonidal abscess s/p I&D 01/15 -abx -local care -warm compress -local care -nutritional optimization -vit c 2. BMI 46 -Diet optimization -Exercise optimization 3. Anemia without evidence of acute blood loss -Eventual workup 4. Right lower lobe pneumonia -Pulmonary toilet -Antibiotics Thank you, Late entry 01/16 Problems: Subjective 24 Hr Interval Summary s/p I&D 01/15. Minimal pain in the back. No fevers or chills. No nausea vomiting. No chest pain or shortness of breath. No visual neurologic changes. No dysuria. No cough. No seizure. No rashes. Bowel function. Exam/Review of Systems Vital Signs Vitals Vital Signs Date Time Temp Pulse Resp B/P Pulse Ox O2 Delivery O2 Flow Rate FiO2 01/16/17 08:02 88 20 95 21 01/16/17 08:01 Nasal Cannula 2.0 01/16/17 07:25 97.5 151/67 Intake and Output 01/16/17 01/16/17 01/17/17 15:00 23:00 07:00 Intake Total 1500 ml Balance 1500 ml Exam Free Text/Dictation Constitutional: alert, obese, oriented, No distress Psych: No anxiety, No confusion Head: atraumatic, normocephalic Eyes: EOMI, PERRL, nl conjunctiva, No icteric ENMT: mucosa pink and moist, nl external ears & nose, nl lips & teeth Neck: non-tender, No jvd Respiratory: normal air movement, No congested cough, No labored breathing Cardiovascular: regular rate and rhythm, No edema Gastrointestinal: non-tender, other (Gluteal cleft wound with packing), soft, No distended, No rebound or guarding Genitourinary - Male: nl penis, nl scrotum Musculoskeletal: nl extremities to inspection, nl gait and stance, No joint tenderness Extremities: normal pulses, No calf tenderness, No cyanosis Neurological: nl mental status, nl speech, nl strength Skin: nl turgor, rash or lesions (Gluteal cleft wound), No diaphoresis Lymph: nl lymph nodes Results Result Diagram: 01/16/17 0510 01/16/17 0510 YOU MAURER MD Jan 17, 2017 20:48
== END 2017-01-16 15:00 | disposition home or self-care (01) | DRG 570 ==
LOC: TEL 01-13 01:09 → MS2 01-14 20:09
PROVIDERS: ADMIT Family Medicine; ATTEND Family Medicine
PROC: 0JB70ZZ Excision of Back Subcutaneous Tissue and Fascia, Open Approach (ICD-10-PCS; principal; 2017-01-15)
DX: L05.01 Pilonidal cyst with abscess (principal); J18.9 Pneumonia, unspecified organism; Z68.42 Body mass index [BMI] 45.0-49.9, adult; E55.9 Vitamin D deficiency, unspecified; R73.03 Prediabetes; E66.9 Obesity, unspecified; D64.9 Anemia, unspecified
CPT/HCPCS: 71010; 80048; 80053; 80061; 80202; 82652; 83036; 83735; 84100; 84439; 84443; 85025; 87070; 94640; 94664; J0456; J0696; J1650; J3370; J7040